=== PATIENT | male | born 1995 | race Caucasian/White ===

== ENCOUNTER 2023-08-07 14:49 | Emergency (ER) | payer BC, OTHER ==
[2023-08-07 15:04] VITALS: BP 146/88; PULSE 70; RESP 16; TEMP 97.8; BMI 27.8
[2023-08-07] MEDS ORDERED: ONDANSETRON 4 MG/2 ML VIAL IVPUSH ONE (15:10)
[2023-08-07] MEDS ORDERED: LACTATED RINGERS SOLUTION 1000 ML INFUS.BAG IV ONE (15:15)
[2023-08-07] MEDS ORDERED: ONDANSETRON 4 MG/2 ML VIAL ONE (15:23)
[2023-08-07] MEDS ORDERED: FAMOTIDINE 20 MG/50 ML IVPB 20 MG/50 ML MG IVPB ONE ×2 (15:32→15:38)
[2023-08-07 15:57] LABS: HEMATOCRIT 43.4 % (35.4-49); HEMOGLOBIN 14.3 G/dL (11.7-16.9); MCH 28.3 pg (25.7-33.7); MCHC 32.9 g/dl (32.0-35.9); MEAN CELL VOLUME 86.2 fl (80-96); MEAN PLT VOLUME 8.7 fl (7.5-11.1); PLATELET COUNT 294.4 10^3/uL (134-434); RBC 5.04 10^6/uL (4.00-5.60); RDW 14.4 % (11.9-15.9); WHITE BLOOD COUNT 7.6 10^3/uL (4.0-10.8)
[2023-08-07 16:04] LABS: ALBUMIN 4.6 g/dl (3.4-5.0); BILIRUBIN,TOTAL 0.7 mg/dl (0.2-1); CALCIUM 9.4 mg/dl (8.5-10.1); CREATININE 0.9 mg/dl (0.6-1.3); MAGNESIUM 1.8 mg/dL (1.8-2.4); POTASSIUM 4.1 mmol/L (3.5-5.1); TOT PROT 6.9 g/dl (6.4-8.2)
[2023-08-07 16:34] LABS: PLATELET ESTIMATE ADEQUATE
== END 2023-08-07 17:46 | disposition home or self-care (01) ==
LOC: FER 14:49
PROC: 3E033GC Introduction of Other Therapeutic Substance into Peripheral Vein, Percutaneous Approach (ICD-10-PCS; principal; 2023-08-07)
PROC: 3E033GC Introduction of Other Therapeutic Substance into Peripheral Vein, Percutaneous Approach (ICD-10-PCS; 2023-08-07)
DX: R10.13 Epigastric pain (principal); R11.2 Nausea with vomiting, unspecified; R42 Dizziness and giddiness; Z20.822 Contact with and (suspected) exposure to COVID-19
CPT/HCPCS: 0241U-QW; 36415; 80053; 82550; 83690; 83735; 85025; 99284-25; G0463

== ENCOUNTER 2024-02-24 20:21 | Emergency (ER) | payer OTHER ==
[2024-02-24 20:27] VITALS: BP 123/71; PULSE 88; RESP 18; TEMP 97.4; BMI 26.4
[2024-02-24] MEDS ORDERED: METOCLOPRAMIDE HCL INJECTION 10 MG/2 ML VIAL ONE (21:40)
[2024-02-24] MEDS: LACTATED RINGERS SOLUTION 1000 ML INFUS.BAG IV ONE (21:54)
[2024-02-24] MEDS: METOCLOPRAMIDE HCL INJECTION 10 MG/2 ML VIAL IVPB ONE (21:54)
[2024-02-24 23:04] LABS: ARTERIAL BLD GAS O2 SATURATION 98.7 % (95-98); ARTERIAL BLOOD GAS BASE EXCESS -2.3 mmol/L (-2-2); ARTERIAL BLOOD GAS pH 7.405 (7.350-7.450)
[2024-02-24 23:05] LABS: ALLENS TEST POSITIVE
== END 2024-02-24 23:48 | disposition home or self-care (01) ==
LOC: JER 20:21
PROC: 3E033GC Introduction of Other Therapeutic Substance into Peripheral Vein, Percutaneous Approach (ICD-10-PCS; principal; 2024-02-24)
DX: M25.531 Pain in right wrist (principal); R51.9 Headache, unspecified; E86.0 Dehydration
CPT/HCPCS: 36600; 73110-TC-RT-FY; 73130-TC-RT-FY; 82375; 82803; 93005; 93010; 99285-25